=== PATIENT | male | born 1980 | race Hispanic/Latino ===

== ENCOUNTER 2017-07-11 11:09 | Observation (INO) | payer OTHER ==
[2017-07-11 12:19] LABS: BASO % 0.3 % (0.0-2.0); EOS % 0.4 % (0.0-4.0); HEMATOCRIT 45.1 % (35.0-51.0); LYMPH # 0.6 K/uL (1.0-4.3); LYMPH % 10.4 % (20.0-40.0); MEAN CELL VOLUME 85.3 fl (80.0-94.0); MEAN CORPUSCULAR HEMOGLOBIN 29.7 pg (27.0-31.0); MEAN CORPUSCULAR HGB CONC 34.8 g/dL (33.0-37.0); MEAN PLATELET VOLUME 8.8 fl (7.2-11.7); MONO # 0.6 K/uL (0.0-0.8); MONO % 9.5 % (0.0-10.0); NEUT # 4.7 K/uL (1.8-7.0); NEUT % 79.4 % (50.0-75.0); NRBC % 0.2 % (0.0-0.0); RED CELL DISTRIBUTION WIDTH 12.8 % (11.5-14.5)
[2017-07-11 12:28] LABS: BLOOD UREA NITROGEN 17 mg/dl (9-20); CALCIUM 9.3 mg/dL (8.4-10.2); CARBON DIOXIDE 26 mmol/L (22-30); CHLORIDE 102 mmol/L (98-107); GFR AFRICAN-AMERICAN > 60; GLUCOSE,RANDOM 85 mg/dL (75-110); SODIUM 139 mmol/l (132-148)
--- NOTE | 2017-07-11 12:39 | ED PDOC ---
HPI: Chest Pain Chief Complaint (Provider): Chest pain History Per: Patient History/Exam Limitations: no limitations Onset/Duration Of Symptoms: Days (x1) Current Symptoms Are (Timing): Still Present Quality: Sharp Associated Symptoms: denies: Nausea, Dyspnea, Syncope <Willis Chapman - Last Filed: 07/11/17 17:23> <Carlos Payton - Last Filed: 07/13/17 05:26> Time Seen by Provider: 07/11/17 11:23 Chief Complaint (Nursing): Chest Pain Additional Complaint(s): Justin Goodwin is a 37 year old male, with no past medical history, who presents to the emergency department complaining of a constant sharp chest pain onset 1 day ago. He went to the urgent clinic today and was given an aspirin and sent to the ED. Patient states the pain started this morning and it doesn't radiate. He reports the pain is not associated with exertion, but feels some pain in the epigastric area as well. Patient denies any nausea, vomit, difficulty breathing, leg swelling, cough, back pain, palpitations, or syncope. No further medical complaints. PMD: None provided. (Willis Chapman) Past Medical History Reviewed: Historical Data, Nursing Documentation, Vital Signs - Surgical History Surgical History: Appendectomy - Social History Current smoker - smoking cessation education provided: No Alcohol: None Drugs: Denies <Willis Chpaman - Last Filed: 07/11/17 17:23> - Family History Family History: States: Unknown Family Hx <Carlos Payton - Last Filed: 07/13/17 05:26> Vital Signs: Last Vital Signs Temp 99.2 F 07/11/17 19:59 Pulse 82 07/11/17 19:59 Resp 18 07/11/17 19:59 BP 128/88 07/11/17 19:59 Pulse Ox 97 07/11/17 19:59 - Home Medications Home Medications: Ambulatory Orders Medication Instructions Recorded Pantoprazole Sodium [Protonix] 20 mg PO DAILY 07/11/17 - Allergies Allergies/Adverse Reactions: Allergies Allergy/AdvReac Type Severity Reaction Status Date / Time No Known Allergies Allergy Verified 10/21/16 20:04 MANUEL Risk Score for UA/NSTEMI - MANUEL Risk Score Age > 64: NO 3 or more CAD Risk Factors: NO Known CAD (Stenosis greater than 50%): NO Aspirin use in past 7 days: NO Severe Angina: NO EKG ST changes greater than 0.5mm: NO Positive Cardiac Marker: NO MANUEL Score: 0 Risk %: 5% <AdelaRolandolilia Gene - Last Filed: 07/11/17 17:23> Curb-65 Severity Score - CURB-65 Severity Score Confusion: No Bun >19mg/dl (>7mmol/L): No Respiratory Rate greater than/equal to 30: No Systolic BP <90 or Diastolic BP less than/equal 60mmHg: No Age >64: No Curb-65 Score: 0 Percentage 30-day mortality: 0.6% <Willis Chapman - Last Filed: 07/11/17 17:23> Wells Criteria for PE - Wells Criteria for Pulmonary Embolism Clinical Signs and Symptoms of DVT: No P.E is #1 Diagnosis, or Equally Likely: No Heart Rate >100: No Immobilization at least 3 days;Surgery previous 4 weeks: No Previous, objectively diagnosed PE or DVT: No Hemoptysis: No Malignancy w/treatment within 6 months, or palliative: No Total Score: 0 <Willis Chapman - Last Filed: 07/11/17 17:23> Review of Systems ROS Statement: Except As Marked, All Systems Reviewed And Found Negative Cardiovascular: Positive for: Chest Pain (constant and sharp). Negative for: Palpitations Respiratory: Negative for: Cough, Shortness of Breath, SOB with Exertion Gastrointestinal: Positive for: Abdominal Pain (epigastric area). Negative for : Nausea, Vomiting Musculoskeletal: Negative for: Back Pain, Other (leg swelling) Neurological: Negative for: Other (Syncope) <Willis Chapman - Last Filed: 07/11/17 17:23> Physical Exam - Reviewed Nursing Documentation Reviewed: Yes Vital Signs Reviewed: Yes - Physical Exam Appears: Positive for: Well, Non-toxic, No Acute Distress Head Exam: Positive for: ATRAUMATIC, NORMAL INSPECTION, NORMOCEPHALIC Skin: Positive for: Normal Color, Warm, Dry Eye Exam: Positive for: EOMI, Normal appearance, PERRL Neck: Positive for: Normal, Painless ROM, Supple Cardiovascular/Chest: Positive for: Regular Rate, Rhythm. Negative for: Chest Non Tender (mild tenderness to chest wall. ), Murmur Respiratory: Positive for: Normal Breath Sounds. Negative for: Respiratory Distress Gastrointestinal/Abdominal: Positive for: Normal Exam, Bowel Sounds, Soft. Negative for: Tenderness Back: Positive for: Normal Inspection (No midline tenderness). Negative for: L CVA Tenderness, R CVA Tenderness Extremity: Positive for: Normal ROM. Negative for: Pedal Edema Neurologic/Psych: Positive for: Alert, Oriented. Negative for: Motor/Sensory Deficits <Willis Chapman - Last Filed: 07/11/17 17:23> - Laboratory Results Result Diagrams: 07/11/17 12:13 07/11/17 12:13 - ECG ECG Rhythm: Positive for: Normal QRS, Sinus Rhythm (Normal). Negative for: ST/ T Changes Rate: 82 O2 Sat by Pulse Oximetry: 97 (RA) Pulse Ox Interpretation: Normal <Willis Chapman Gene - Last Filed: 07/11/17 17:23> - Laboratory Results Result Diagrams: 07/11/17 12:13 07/11/17 12:13 <Carlos Payton - Last Filed: 07/13/17 05:26> Medical Decision Making <Willis Chapman - Last Filed: 07/11/17 17:23> <Carlos Payton - Last Filed: 07/13/17 05:26> Medical Decision Making: Initial Impression: Chest pain. Differential includes: ACS, PE, pneumothorax, AAA Initial Plan: --EKG --Basic Metabolic Panel --Drug screen, Urine --Troponin I --D Dimer --Chest one view [RAD] --reevaluation 1309 Chest x-ray FINDINGS: LUNGS: Clear. PLEURA: No pneumothorax or pleural fluid seen. CARDIOVASCULAR: Normal. OSSEOUS STRUCTURES: No significant abnormalities. VISUALIZED UPPER ABDOMEN: Normal. OTHER FINDINGS: None. IMPRESSION: No active disease. 1700 Patient had near syncopal episode while in ED. Scribe Attestation: Documented by Dino Wick, acting as a scribe for Willis Patino MD Provider Scribe Attestation: All medical record entries made by the Scribe were at my direction and personally dictated by me. I have reviewed the chart and agree that the record accurately reflects my personal performance of the history, physical exam, medical decision making, and the department course for this patient. I have also personally directed, reviewed, and agree with the discharge instructions and disposition. (Willis Chapman) Disposition - Patient ED Disposition Is Patient to be Admitted: Yes Discussed With DrKoby: Jatinder Fuller Doctor Will See Patient In The: Hospital Counseled Patient/Family Regarding: Studies Performed, Diagnosis - Disposition Disposition Time: 17:00 - Pt Status Changed To: Hospital Disposition Of: Observation - POA Present On Arrival: None Core Measure Indicators: Chest Pain <Willsi Chapman - Last Filed: 07/11/17 17:23> <Carlos Payton - Last Filed: 07/13/17 05:26> - Clinical Impression Clinical Impression: Chest pain, Near syncope - Disposition Condition: STABLE Addendum <Willis Chapman - Last Filed: 07/11/17 17:23> <Carlos Payton - Last Filed: 07/13/17 05:26> Addendum: 07/11/17 20:05 Nurse asked me to evaluate patient who wanted to leave against AMA because he was "feeling better", admitted by Dr. Chapman to Dr. Fuller on previous shift. Chart reviewed, vitals reviewed, went and spoke with patient about risks of leaving hospital against medical advice and benefits of staying in the hospital such as further testing, evaluation by clean up supervisor, cardiac monitoring, medications, etc. Risks were discussed and included lack of further testing, delay in diagnosis of potential life threatening conditions such as OH, PE, dissection, or others, pain, permanent disability, or even . Patient verbally understood these risks, was speaking clearly and competently, able to make decisions for himself and decided to sign out still. States he will followup with a clean up supervisor tomorrow. Told patient that if anything changes between discharge and followup tomorrow that he should return immediately ( worsening chest pain, dizziness, or any other concerning symptoms). (Carlos Payton)
--- NOTE | 2017-07-11 13:11 | RAD ---
PROCEDURE: CHEST RADIOGRAPH, 1 VIEW HISTORY: chest pain COMPARISON: 10/08/2012 FINDINGS: LUNGS: Clear. PLEURA: No pneumothorax or pleural fluid seen. CARDIOVASCULAR: Normal. OSSEOUS STRUCTURES: No significant abnormalities. VISUALIZED UPPER ABDOMEN: Normal. OTHER FINDINGS: None. IMPRESSION: No active disease.
[2017-07-11] MEDS ORDERED: Sodium Chloride 0.9% 50 ML IV ONE (14:50)
[2017-07-11] MEDS ORDERED: Iodixanol 320 MG/ML 100 ML BOTTLE IV ONE (14:50)
--- NOTE | 2017-07-11 16:06 | CT ---
PROCEDURE: CT Chest with contrast (Pulmonary Angiogram) HISTORY: chest pain COMPARISON: None available. TECHNIQUE: Axial computed tomography images were obtained of the chest in the pulmonary arterial phase of enhancement. Coronal and sagittal reformatted images were created and reviewed. Intravenous contrast dose: 100 mL Visipaque 320 Radiation dose: Total exam DLP = 1188.49 mGy-cm. This CT exam was performed using one or more of the following dose reduction techniques: Automated exposure control, adjustment of the mA and/or kV according to patient size, and/or use of iterative reconstruction technique. FINDINGS: PULMONARY ARTERIES: Unremarkable. No pulmonary embolism. AORTA: No acute findings. No thoracic aortic aneurysm. LUNGS: No pulmonary infiltrate. There are 2 nodules abutting the major fissure, in the right lower lobe. These measure 4 mm and 5 mm respectively. Possibly intrapulmonary lymph nodes. By size criteria, no followup required. PLEURAL SPACES: Unremarkable. No effusion or pneuomothorax. HEART: Unremarkable. No cardiomegaly. No significant pericardial effusion. LYMPH NODES: No lymphadenopathy. BONES, CHEST WALL: Unremarkable. No fracture or destructive lesion OTHER FINDINGS: Unremarkable. IMPRESSION: No evidence of pulmonary embolism. Two small pulmonary nodules abutting the major fissure, possibly intrapulmonary lymph nodes. No followup required. Otherwise unremarkable examination.
--- NOTE | 2017-07-11 16:42 | CT ---
PROCEDURE: CT Angiography Chest, Abdomen and Pelvis with and without intravenous contrast HISTORY: chest pain COMPARISON: None. TECHNIQUE: Contiguous axial images of the chest, abdomen and pelvis were obtained in the phase of aortic enhancement. A noncontrast enhanced CT of the chest was also obtained to evaluate for possible intramural thrombus. Coronal and sagittal reformats were generated. IV dose administered: 100 mL Visipaque 320 Radiation dose: Total exam DLP = mGy-cm. This CT exam was performed using one or more of the following dose reduction techniques: Automated exposure control, adjustment of the mA and/or kV according to patient size, and/or use of iterative reconstruction technique. FINDINGS: CT ANGIOGRAPHY OF THE CHEST WITH & WITHOUT CONTRAST: AORTA (CHEST AND ABDOMEN): The thoracic and abdominal aorta are unremarkable, without aneurysm, dissection or rupture. No intramural thrombus identified in the thoracic aorta on the non-contrast ct of the chest. The celiac axis, superior mesenteric artery, inferior mesenteric artery and the renal arteries are widely patent. The pelvic arteries are unremarkable. LUNGS: Clear. No nodule, mass or consolidation. MEDIASTINUM: Unremarkable. Normal caliber aorta and pulmonary arterial trunk. No aortic dissection. Normal size heart. LYMPH NODES: Unremarkable. PLEURA: Unremarkable. No pneumothorax. No pleural fluid. BONES: Unremarkable. OTHER FINDINGS: None. CT ANGIOGRAPHY OF THE ABDOMEN AND PELVIS WITH CONTRAST: LIVER: Unremarkable. No gross lesion or ductal dilatation. GALLBLADDER AND BILE DUCTS: Unremarkable. PANCREAS: Unremarkable. No gross lesion or ductal dilatation. SPLEEN: Unremarkable. ADRENALS: Unremarkable. No mass. KIDNEYS AND URETERS: Unremarkable. No hydronephrosis. No solid mass. VASCULATURE: Unremarkable. No aortic aneurysm. STOMACH AND BOWEL: Unremarkable. No obstruction. No gross mural thickening. APPENDIX: Surgical clips adjacent to cecum and nonvisualized appendix. Likely prior appendectomy. PERITONEUM: Unremarkable. No free fluid. No free air. LYMPH NODES: Unremarkable. No enlarged lymph nodes. BONES: No acute fracture. OTHER FINDINGS: None. IMPRESSION: No evidence of thoracic or abdominal aortic aneurysm. No evidence of aortic dissection. Unremarkable examination.
[2017-07-11 19:59] VITALS: BP 128/88; PULSE 82; RESP 18; TEMP 99.2; O2SAT 97
--- NOTE | 2017-07-12 10:34 | CARD ---
APPROVED REPORT EKG Measurement Heart [id number] [place] [id number] [id number] <Conclusion> Normal sinus rhythm Normal ECG
--- NOTE | 2017-07-12 10:36 | CARD ---
APPROVED REPORT EKG Measurement Heart [id number] [place] 154P37 [id number] <Conclusion> Normal sinus rhythm Normal ECG
== END 2017-07-11 20:01 | disposition left against medical advice (07) ==
LOC: H.ER 11:09 → H.ERHOLD 17:24
PROVIDERS: ADMIT Internal Medicine Pulmonary Disease; ATTEND Internal Medicine Pulmonary Disease
DX: R07.9 Chest pain, unspecified (principal); R55 Syncope and collapse
CPT/HCPCS: 71010; 71275; 74175; 80048; 80324; 80345; 80346; 80349; 80353; 80358; 80361; 82948; 83992; 84484; 85025; 85378; 93005; 96374; 96376; 99283; G0378; J2270; Q9967